=== PATIENT | female | born 2005 | race Caucasian/White ===

== ENCOUNTER 2024-11-08 08:29 | Emergency (ER) | payer BC, MEDICAID ==
[2024-11-08] MEDS: Ondansetron 4 MG/2 ML SDV IVPUSH ONE (09:18)
== END 2024-11-08 11:17 | disposition home or self-care (01) ==
LOC: JP.ED 08:29
DX: O21.0 Mild hyperemesis gravidarum (principal); Z3A.11 11 weeks gestation of pregnancy; Z88.8 Allergy status to other drugs, medicaments and biological substances; Z79.899 Other long term (current) drug therapy
CPT/HCPCS: 96361; 96374; 99283; J2405; J7030